=== PATIENT | male | born 1955 | race Caucasian/White ===

== ENCOUNTER 2020-11-30 09:42 | Emergency (ER) | payer MEDICARE ==
[~2020-11-30] VITALS: Ht 172.7 cm; Wt 93.6 kg
--- NOTE | 2020-11-30 10:05 | NUR ---
PT BIB VIA POV. PER PT WENT TO EYE DOCTOR TWO WEEKS AGO AND THE DOCTOR SAID HE HAD A STROKE AND TO GO TO ER, BUT THEY DIDN'T. PER PT HE HAS NO SYMPTOMS,BUT HIS VISION WAS BLURRY TWO WEEKS AGO. PT'S STATES SHE IS ALSO CONCERNED ABOUT HIS COPD GETTING WORSE. PT STATES HE SMOKES ABOUT 4 CIGARETTES/DAY. PT RESTING IN [facility], MONITORING IN PLACE, [facility] AT THIS TIME, AT BEDSIDE, BHARATI.
--- NOTE | 2020-11-30 11:07 | NUR ---
TASK RN: PIV PLACED WITH ULTRASOUND RADIOLOGY AT BEDSIDE FOR CXR
[2020-11-30 11:18] LABS: BASOPHILS % (AUTO) 1 % (0-1); EOSINOPHILS % (AUTO) 3 % (1-7); LYMPHOCYTES % (AUTO) 23 % (22-44); MEAN CORPUSCULAR HEMOGLOBIN 31.4 pg (27.5-34.5); MEAN CORPUSCULAR HGB CONC 33.7 g/dL (33.2-36.2); MEAN PLATELET VOLUME 9.4 fL (7.4-10.4); MONOCYTES % (AUTO) 7 % (2-9); NEUTROPHILS % (AUTO) 66 % (42-75); PLATELET COUNT 248 x10^3/uL (130-400); RED BLOOD COUNT 5.64 x10^6/uL (4.38-5.82); RED CELL DISTRIBUTION WIDTH 13.1 % (9.4-14.8)
[2020-11-30 11:19] LABS: MD NO
[2020-11-30 11:25] LABS: ALBUMIN 4.5 g/dL (3.4-5.0); ANION GAP 10 mmol/L (5-15); CALCIUM 10.1 mg/dL (8.5-10.1); CHLORIDE 99 mmol/L (98-107)
[2020-11-30 11:26] LABS: CREATININE 1.12 mg/dL (0.7-1.3)
[2020-11-30 12:05] LABS: INTERNATIONAL NORMALIZED RATIO 1.11 (0.93-1.1); PROTHROMBIN TIME 11.9 Seconds (9.6-11.5)
[2020-11-30 13:06] VITALS: BP 128/84
[2020-11-30] MEDS ORDERED: OMNIPAQUE 350 MG/ML, 100ML BOTTLE ONE (13:09)
== END 2020-11-30 14:34 | disposition home or self-care (01) ==
LOC: ED 11:30
DX: H43.399 Other vitreous opacities, unspecified eye (principal); R94.31 Abnormal electrocardiogram [ECG] [EKG]; R06.02 Shortness of breath; Z86.73 Personal history of transient ischemic attack (TIA), and cerebral infarction without residual deficits
CPT/HCPCS: 36415; 70450; 70496; 70498; 71045; 80048; 82040; 85025; 85610; 85730; 93005; 99285; Q9967